=== PATIENT | male | born 2000 | race Hispanic/Latino ===

== ENCOUNTER 2020-04-07 10:44 | Emergency (ER) | payer OTHER ==
[2020-04-07 11:00] LABS: APPEARANCE,URINE Clear (CLEAR); BILIRUBIN,URINE Negative (NEGATIVE); COLOR,URINE Yellow (YELLOW); GLUCOSE, URINE (UA) Negative (NEGATIVE); KETONES,URINE Negative (NEGATIVE); LEUKOCYTE ESTERASE ,URINE Negative (NEGATIVE); NITRATE,URINE Negative (NEGATIVE); OCCULT BLOOD,URINE Negative (NEGATIVE); PROTEIN,URINE Negative (NEGATIVE); UROBILINOGEN,URINE 0.2 mg/dL (0.2-1.0)
[2020-04-07] MEDS ORDERED: CEFTRIAXONE SODIUM 1 GM ONE (11:38)
[2020-04-07] MEDS ORDERED: AZITHROMYCIN 250 MG TABLET PO ONE (11:38)
[2020-04-07] MEDS ORDERED: LIDOCAINE HCL-MPF 1% 2ML VIAL ONE (11:38)
== END 2020-04-07 12:52 | disposition home or self-care (01) ==
LOC: EDH 10:44
DX: A74.9 Chlamydial infection, unspecified (principal)
CPT/HCPCS: 81003; 87486; 87797; 96372; 99283; J0696; J3490